=== PATIENT | female | born 1955 | race Caucasian/White ===

== ENCOUNTER 2017-10-10 08:26 | Day surgery (SDC) | payer BC ==
[~2017-10-10 08:26] MED LIST: Lactated Ringers 1,000 ML IV SCH; Lidocaine 1%/Sod Bicarbonate in NS 8.4% 1 ML Syringe PRN; Sodium Chloride 0.9% 10 ML Syringe FLUSH PRN
--- NOTE | 2017-10-10 09:50 | PCM.PREANE ---
Preanesthetic Assessment - Anesthesia/Transfusion/Family Hx Anesthesia History: Prior Anesthesia Without Reaction Family History of Anesthesia Reaction: No Transfusion History: No Prior Transfusion(s) Intubation History: Unknown - Review of Systems General: Other (Post nasal drainage ) Pulmonary: No Symptoms Cardiovascular: No Symptoms Gastrointestinal: No Symptoms Neurological: Headache (Slight headache this morning) Other: Reports: Thyroid Problems (Thyroid nodules, removed. ) - Physical Assessment NPO Status Date: 10/09/17 NPO Status Time: 22:00 O2 Sat by Pulse Oximetry: 98 Respiratory Rate: 16 Vital Signs: Last Vital Signs Temp 37.2 C 10/10/17 08:30 Pulse 89 10/10/17 08:30 Resp 16 10/10/17 08:30 BP 143/76 H 10/10/17 08:30 Pulse Ox 98 10/10/17 08:30 Height: 1.6 m Weight: 53.977 kg ASA Class: 2 Mental Status: Alert & Oriented x3 Airway Class: Mallampati = 1 Dentition: Reports: Normal Dentition Thyro-Mental Finger Breadths: 2 Mouth Opening Finger Breadths: 3 ROM/Head Extension: Full Lungs: Clear to Auscultation, Normal Respiratory Effort Cardiovascular: Regular Rate, Regular Rhythm - Allergies Allergies/Adverse Reactions: Allergies Allergy/AdvReac Type Severity Reaction Status Date / Time No Known Allergies Allergy Verified 10/09/17 16:08 - Acknowledgements Anesthesia Type Planned: MAC Pt an Appropriate Candidate for the Planned Anesthesia: Yes Alternatives and Risks of Anesthesia Discussed w Pt/Guardian: Yes Pt/Guardian Understands and Agrees with Anesthesia Plan: Yes PreAnesthesia Questionnaire HEENT History: Reports: None Cardiovascular History: Reports: High Cholesterol Respiratory History: Reports: None Genitourinary History: Reports: None 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 Musculoskeletal History: Reports: Osteoarthritis Neurological History: Reports: None Psychiatric History: Reports: None Endocrine/Metabolic History: Reports: Hypothyroidism Hematologic History: Reports: None Immunologic History: Reports: None Oncologic (Cancer) History: Reports: None Dermatologic History: Reports: None - Past Surgical History Head Surgeries/Procedures: Reports: None HEENT Surgical History: Reports: Oral Surgery Cardiovascular Surgical History: Reports: None Respiratory Surgical History: Reports: None GI Surgical History: Reports: Colonoscopy Female Surgical History: Reports: Hysterectomy Male Surgical History: Reports: None Endocrine Surgical History: Reports: Thyroid Biopsy Neurological Surgical History: Reports: None Musculoskeletal Surgical History: Reports: Shoulder Surgery Oncologic Surgical History: Reports: None Dermatological Surgical History: Reports: None - SUBSTANCE USE Smoking Status *Q: Never Smoker Recreational Drug Use History: No - HOME MEDS Home Medications: Home Meds valACYclovir HCl [Valtrex] 500 mg PO BID PRN 10/09/17 [History] - CURRENT (IN HOUSE) MEDS Current Meds: Current Medications Lactated Ringer's (Ringers, Lactated) 1,000 mls @ 125 mls/hr IV ASDIRECTED KEYLA Stop: 10/10/17 23:00 Last Admin: 10/10/17 08:40 Dose: 125 mls/hr Lidocaine/Sodium Bicarbonate (Buffered Lidocaine 1% In Ns 8.4%) 0.25 ml .XX ONETIME PRN PRN Reason: Prior to IV Start Stop: 10/10/17 18:00 Last Admin: 10/10/17 08:40 Dose: 0.25 ml Sodium Chloride (Saline Flush) 10 ml FLUSH ASDIRECTED PRN PRN Reason: Keep Vein Open Stop: 10/10/17 18:00
[2017-10-10] MEDS ORDERED: Propofol 200 MG/20 ML SDV ONE (09:51)
--- NOTE | 2017-10-10 10:58 | PCM.OPNOTE ---
- General Post-Op/Procedure Note Date of Surgery/Procedure: 10/10/17 Operative Procedure(s): Colonoscopy Findings: 1. Anal tags 2. Uncomplicated hemorrhoids 3. 2 ascending colon diverticulum Pre Op Diagnosis: Screening colonoscopy Post-Op Diagnosis: 1. Anal tags. 2. Uncomplicated hemorrhoids. 3. 2 ascending colon diverticulum Anesthesia Technique: MAC, Moderate Sedation Primary Surgeon: Pratik Hughes Pathology: None EBL in mLs: 0 Complications: None Condition: Good Free Text/Narrative:: After adequate IV sedation and analgesia was obtained with monitoring the patient was placed on her left side. Perianal inspection revealed the anal tags. Digital rectal examination was unremarkable. A lubricated colonoscope was inserted into the rectum then advanced under direct vision with air insufflation as necessary to the cecum without difficulty. The bowel preparation was excellent. The cecum was unremarkable. The right colon had 2 small diverticula. The transverse and descending colons were endoscopically normal with no mass lesions or inflammatory change seen. Likewise the sigmoid and rectum were unremarkable except for the retroflexed view which showed some minor internal hemorrhoids. Ground Crew Supervisor photographs were taken for the patient and for the record. Air was removed as I finished the procedure which she tolerated well.
--- NOTE | 2017-10-10 11:01 | PCM48HPAN ---
Post Anesthesia Note - EVALUATION WITHIN 48HRS OF ANESTHETIC Vital Signs in Normal Range: Yes Patient Participated in Evaluation: Yes Respiratory Function Stable: Yes Airway Patent: Yes Cardiovascular Function Stable: Yes Hydration Status Stable: Yes Pain Control Satisfactory: Yes Nausea and Vomiting Control Satisfactory: Yes Mental Status Recovered: Yes - COMMENTS/OBSERVATIONS Free Text/Narrative:: pt resting quietly, VSS no c/o
== END 2017-10-10 11:25 | disposition home or self-care (01) ==
LOC: JD.SDS 08:26
PROVIDERS: ATTEND Surgery
DX: Z12.11 Encounter for screening for malignant neoplasm of colon (principal); K64.4 Residual hemorrhoidal skin tags; K57.30 Diverticulosis of large intestine without perforation or abscess without bleeding; E78.00 Pure hypercholesterolemia, unspecified; M19.90 Unspecified osteoarthritis, unspecified site; E78.2 Mixed hyperlipidemia; E03.9 Hypothyroidism, unspecified; Z80.51 Family history of malignant neoplasm of kidney; Z80.8 Family history of malignant neoplasm of other organs or systems; Z98.890 Other specified postprocedural states
CPT/HCPCS: 45378; J7120; 00810; J2704

== ENCOUNTER 2018-03-14 06:57 | Day surgery (SDC) | payer BC ==
[2018-03-14] MEDS ORDERED: Sodium Chloride 0.9% 10 ML Syringe FLUSH PRN (07:00)
[2018-03-14] MEDS ORDERED: Lactated Ringers 1,000 ML IV SCH (07:00)
[2018-03-14] MEDS ORDERED: Lidocaine 1%/Sod Bicarbonate in NS 8.4% 1 ML Syringe IDERM PRN (07:00)
--- NOTE | 2018-03-14 07:22 | PCM.PREANE ---
Preanesthetic Assessment - Anesthesia/Transfusion/Family Hx Anesthesia History: Prior Anesthesia Without Reaction Family History of Anesthesia Reaction: No Transfusion History: No Prior Transfusion(s) Intubation History: Unknown - Review of Systems General: No Symptoms Pulmonary: No Symptoms Cardiovascular: No Symptoms Gastrointestinal: No Symptoms Neurological: No Symptoms Other: Reports: Thyroid Problems - Physical Assessment NPO Status Date: 03/13/18 NPO Status Time: 22:00 Pulse: 57 O2 Sat by Pulse Oximetry: 98 Respiratory Rate: 16 Blood Pressure: 127/73 Temperature: 99.1 F Height: 5 ft 3 in Weight: 58.06 kg ASA Class: 2 Mental Status: Alert & Oriented x3 Airway Class: Mallampati = 1 Dentition: Reports: Normal Dentition Thyro-Mental Finger Breadths: 3 Mouth Opening Finger Breadths: 3 ROM/Head Extension: Full Lungs: Clear to Auscultation, Normal Respiratory Effort Cardiovascular: Regular Rate, Regular Rhythm - Allergies Allergies/Adverse Reactions: Allergies Allergy/AdvReac Type Severity Reaction Status Date / Time No Known Allergies Allergy Verified 03/13/18 13:11 - Blood Blood Available: No - Acknowledgements Anesthesia Type Planned: GLENNY Pt an Appropriate Candidate for the Planned Anesthesia: Yes Alternatives and Risks of Anesthesia Discussed w Pt/Guardian: Yes Pt/Guardian Understands and Agrees with Anesthesia Plan: Yes PreAnesthesia Questionnaire HEENT History: Reports: None, Impaired Vision Cardiovascular History: Reports: High Cholesterol Respiratory History: Reports: None Genitourinary History: Reports: None 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: Musculoskeletal History: Reports: Arthritis, Osteoarthritis Neurological History: Reports: Other (See Below) Other Neuro History: lumbosacral spinal stenosis Psychiatric History: Reports: None Endocrine/Metabolic History: Reports: Hypothyroidism Hematologic History: Reports: None Immunologic History: Reports: None Oncologic (Cancer) History: Reports: None Dermatologic History: Reports: None - Past Surgical History Head Surgeries/Procedures: Reports: None HEENT Surgical History: Reports: Oral Surgery Cardiovascular Surgical History: Reports: None Respiratory Surgical History: Reports: None GI Surgical History: Reports: Colonoscopy Female Surgical History: Reports: Hysterectomy Male Surgical History: Reports: None Endocrine Surgical History: Reports: Thyroid Biopsy Neurological Surgical History: Reports: None Musculoskeletal Surgical History: Reports: Shoulder Surgery, Other (See Below) ( finger surgery) Oncologic Surgical History: Reports: None Dermatological Surgical History: Reports: None - SUBSTANCE USE Smoking Status *Q: Never Smoker Tobacco Use Within Last Twelve Months: No Second Hand Smoke Exposure: No Days Per Week of Alcohol Use: 2 Number of Drinks Per Day: 2 Total Drinks Per Week: 4 Recreational Drug Use History: No - HOME MEDS Home Medications: Home Meds Levothyroxine 25 mcg PO DAILY 03/13/18 [History] Naproxen Sodium [Aleve] 1 - 2 tab PO BID PRN 03/13/18 [History] - CURRENT (IN HOUSE) MEDS Current Meds: Current Medications Lactated Ringer's (Ringers, Lactated) 1,000 mls @ 125 mls/hr IV ASDIRECTED KEYLA Stop: 03/14/18 23:00 Lidocaine/Sodium Bicarbonate (Buffered Lidocaine 1% In Ns 8.4%) 0.25 ml IDERM ONETIME PRN PRN Reason: Prior to IV Start Stop: 03/14/18 18:00 Sodium Chloride (Saline Flush) 10 ml FLUSH ASDIRECTED PRN PRN Reason: Keep Vein Open Stop: 03/14/18 18:00
[2018-03-14] MEDS ORDERED: ceFAZolin 1 GM Vial ONE (07:31)
[2018-03-14] MEDS ORDERED: Ondansetron 4 MG/2 ML SDV ONE (07:31)
[2018-03-14] MEDS ORDERED: Midazolam 1 MG/ML 2 ML SDV ONE (07:31)
[2018-03-14] MEDS ORDERED: Lidocaine 1% 4 ML ONE (07:31)
[2018-03-14] MEDS ORDERED: Propofol 200 MG/20 ML SDV ONE (07:31)
[2018-03-14] MEDS ORDERED: Sodium Bicarbonate 8.4% 50 MEQ/50 ML SDV ONE (07:32)
[2018-03-14] MEDS ORDERED: Lidocaine 0.5% 50 ML SDV ONE (07:32)
[2018-03-14] MEDS ORDERED: Betamethasone Acetate/Betamethasone Sod Phosphate 30 MG/5 ML MDV ONE (07:53)
[2018-03-14] MEDS ORDERED: Bupivacaine 0.25% 30 ML SDV ONE (07:53)
[2018-03-14] MEDS ORDERED: fentaNYL 250 MCG/5 ML SDV ONE (08:19)
[2018-03-14] MEDS ORDERED: fentaNYL 100 MCG/2 ML SDV IVPUSH PRN (08:45)
[2018-03-14] MEDS ORDERED: Ondansetron 4 MG/2 ML SDV IVPUSH PRN (08:45)
[2018-03-14] MEDS ORDERED: Ketorolac 30 MG/ML SDV ONE (09:14)
--- NOTE | 2018-03-14 09:41 | PCM48HPAN ---
Post Anesthesia Note - EVALUATION WITHIN 48HRS OF ANESTHETIC Vital Signs in Normal Range: Yes Patient Participated in Evaluation: Yes Respiratory Function Stable: Yes Airway Patent: Yes Cardiovascular Function Stable: Yes Hydration Status Stable: Yes Pain Control Satisfactory: Yes Nausea and Vomiting Control Satisfactory: Yes Mental Status Recovered: Yes Pulse Rate: 61 SaO2: 95 Resp Rate: 12 Temperature: 97.6 F Blood Pressure: 124/74
--- NOTE | 2018-03-14 10:06 | CR ---
Right finger: Three fluoroscopic spot views were obtained of the fourth finger utilizing C-arm device. Study shows longitudinal pin placement through the distal phalanx into the distal middle phalanx through the DIP joint. Fracture appears to be present within the distal phalanx. Fluoroscopy time is given as 10.9 seconds. Impression: 1. Procedural study as noted above. Diagnostic code #2
[2018-03-14] MEDS ORDERED: Acetaminophen/HYDROcodone 325-10 MG Tab PO ONE (10:45)
--- NOTE | 2018-03-14 17:18 | OR ---
DATE OF OPERATION: 03/14/2018 SURGEON: Lul Muniz MD PREOPERATIVE DIAGNOSIS: 1. Bilateral CMC arthritis. 2. Right ring finger, chronic bony mallet. OPERATION PERFORMED: 1. Open reduction and internal fixation of chronic bony mallet with extensor tendon repair. 2. Intraoperative fluoroscopy. DESCRIPTION OF PROCEDURE: Ms. Kinney is a pleasant 62-year-old female with a chronic bony mallet. After discussing the risks, benefits, alternatives, conservative as well as surgical treatment, the patient verbalized understanding and wished to proceed with surgery. The patient was brought to the operating room, underwent a Robert Lee blockade. The right upper extremity was prepped and draped in standard orthopedic fashion. Surgical pause was performed identifying the appropriate patient and appropriate extremity to be operated upon. Preoperative antibiotics were given. A champagne glass incision was made at the DIP joint. Sharp dissection was carried out through skin and subcutaneous tissue. Hemostasis was obtained. We exposed the extensor mechanism. Then I took a radiograph, again she had the above chronic bony mallet, reduced the alignment and pinned the joint with 0.45 mm K-wire. We then exposed the fracture site with the attached extensor mechanism. Removed the old fracture hematoma and callus. We then reduced this. The fragment was quite small and the smallest pin we had was 0.35. So I did not feel like I could do and split the fragment. Therefore I elected to proceed with suture repair of the tendon and reduction of the bony piece. We were able to reduce this quite nicely with minimal step-off. We then sutured the extensor mechanism and fragment back with a 4-0 Vicryl. We verified the reduction, had an acceptable reduction, and a good alignment overall of the DIP joint. Radiographs were taken again to evaluate the alignment and this looked good. We then irrigated the wound thoroughly and closed the skin with 5- 0 nylon. She was placed in a well-padded splint. We then steriley injected both CMC joints with a mixture of 1 mL of Celestone and 2 mL of 0.25% bupivacaine without epinephrine. We injected about 2 mL in each CMC joint without difficulty. POSTOPERATIVE DIAGNOSIS: ANESTHESIA: ESTIMATED BLOOD LOSS: MMODAL /[id number]
== END 2018-03-14 11:10 | disposition home or self-care (01) ==
LOC: JD.SDS 06:57
PROVIDERS: ATTEND Orthopaedic Surgery
DX: M20.011 Mallet finger of right finger(s) (principal); M18.0 Bilateral primary osteoarthritis of first carpometacarpal joints; E78.00 Pure hypercholesterolemia, unspecified; E03.9 Hypothyroidism, unspecified; G47.00 Insomnia, unspecified; E78.2 Mixed hyperlipidemia; Z79.899 Other long term (current) drug therapy
CPT/HCPCS: 26433; 26746; 76000; 87641; A9270; C1769; J0690; J0702; J1885; J2001; J2250; J2405; J3010; J3490; J7120; 01830; J2704